=== PATIENT | male | born 1950 | race Caucasian/White ===

== ENCOUNTER 2025-02-10 13:31 | Emergency (ER) | payer OTHER ==
[2025-02-10 13:44] VITALS: BP 138/70; PULSE 53; RESP 16; TEMP 98; BMI 27.2
[2025-02-10] MEDS ORDERED: RABIES VACCINE (PCEC)/PF 2.5 UNIT/VIAL IM ONE (14:36)
[2025-02-10] MEDS ORDERED: RABIES IMMUNE GLOBULIN 300 UNITS/1 ML VIAL ONE (14:43)
[2025-02-10] MEDS ORDERED: RABIES IMMUNE GLOBULIN/PF 300 UNIT/ML (5 ML) VIAL IM ONE (14:44)
[2025-02-10] MEDS: RABIES IMMUNE GLOBULIN 300 UNITS/1 ML VIAL IM ONE (15:14)
[2025-02-10] MEDS: RABIES VACCINE (PCEC)/PF 2.5 UNIT/VIAL IM ONE (15:15)
== END 2025-02-10 15:31 | disposition home or self-care (01) ==
LOC: JERFT 13:31
PROC: 3E0234Z Introduction of Serum, Toxoid and Vaccine into Muscle, Percutaneous Approach (ICD-10-PCS; principal; 2025-02-10)
DX: Z20.3 Contact with and (suspected) exposure to rabies (principal); Z29.14 Encounter for prophylactic rabies immune globulin
CPT/HCPCS: 90375; 90471; 90675; 99284-25

== ENCOUNTER 2025-02-24 05:40 | Emergency (ER) | payer OTHER ==
[2025-02-24 06:04] VITALS: BP 128/61; PULSE 43; RESP 18; TEMP 97.7; BMI 27.9
[2025-02-24] MEDS ORDERED: RABIES VACCINE (PCEC)/PF 2.5 UNIT/VIAL IM ONE (06:07)
[2025-02-24] MEDS: RABIES VACCINE (PCEC)/PF 2.5 UNIT/VIAL IM ONE (06:21)
== END 2025-02-24 06:30 | disposition home or self-care (01) ==
LOC: JER 05:40
PROC: 3E0234Z Introduction of Serum, Toxoid and Vaccine into Muscle, Percutaneous Approach (ICD-10-PCS; principal; 2025-02-24)
DX: Z23 Encounter for immunization (principal)
CPT/HCPCS: 90675; 99281-25